=== PATIENT | male | born 1985 | race Caucasian/White ===

== ENCOUNTER 2016-12-28 20:27 | Emergency (ER) | payer OTHER ==
[~2016-12-28] VITALS: Ht 193 cm; Wt 11.3 kg
[~2016-12-28 20:27] MED LIST: ABILIFY20 MG PO; ADVAIR 250-501 EACH INH; ADVAIR 500-501 EACH INH; AMBIEN 10 MG TA10 MG PO; ASPIRIN325; ATIVAN1 MG PO; CIALIS20 MG PO; CLONAZEPAM 1 MG1 M1 PO; CYMBALTA30 MG PO; GEODON80 MG PO; HYDROCODON-ACE1 EAC5 PO; HYDROCODON-ACE1 EAC7 PO; IBUPROFEN 600600 M1 PO; LITHIUM CARBON300 M3 PO; LORAZEPAM 1 MG T1 M1 PO; LYRICA100 MG PO; MEDROL DOSPAK21 TAB PO; MOBIC15 MG PO; MULTI-VITAMIN1 EAC5 PO; NAPROSYN500 MG PO; NORCO 10-325 T1 EACH PO; NORCO 5-325 TA1 EACH PO; OMEPRAZOLE 20 M20 MG PO; PERCOCET 5-3251 EACH PO; PERCOCET PO; PREDNISONE 20 M20 M1 PO; RA CENTRAL-VIT1 EAC8 PO; SINGULAIR 10 MG10 MG PO; SONATA10 MG PO; TEGRETOL XR200 MG PO; VALACYCLOVIR500 MG PO; XANAX 0.5 MG0.5 MG; ZOFRAN ODT4 MG PO; ZPAK PO
[2016-12-28 20:29] VITALS: BP 139/89
[2016-12-28] MEDS ORDERED: PRAVACHOL20 MG PO (20:36)
[2016-12-28] MEDS ORDERED: STRIBILD TABLE1 EACH PO (20:36)
== END 2016-12-28 21:30 | disposition left against medical advice (07) ==
LOC: ER 20:27
DX: M25.551 Pain in right hip (principal); Z53.21 Procedure and treatment not carried out due to patient leaving prior to being seen by health care provider

== ENCOUNTER 2019-10-14 21:55 | Emergency (ER) | payer OTHER ==
[~2019-10-14] VITALS: Ht 193 cm; Wt 127.0 kg
[~2019-10-14 21:55] MED LIST changes: +PRAVACHOL20 MG PO; +STRIBILD TABLE1 EACH PO
[2019-10-14] MEDS ORDERED: CLONAZEPAM 1 MG1 M1 PO (22:07)
[2019-10-14 22:48] VITALS: BP 135/80
== END 2019-10-14 22:48 | disposition home or self-care (01) ==
LOC: ER 21:55
DX: S01.111A Laceration without foreign body of right eyelid and periocular area, initial encounter (principal); I25.2 Old myocardial infarction; F17.210 Nicotine dependence, cigarettes, uncomplicated; Z88.6 Allergy status to analgesic agent; Z88.1 Allergy status to other antibiotic agents; X58.XXXA Exposure to other specified factors, initial encounter; Y93.89 Activity, other specified; Y92.89 Other specified places as the place of occurrence of the external cause; Y99.8 Other external cause status